=== PATIENT | male | born 1955 | race Caucasian/White ===

== ENCOUNTER → 2022-10-21 | Outpatient (CLI) | payer SELFPAY ==
[2022-10-21 16:11] LABS: Basophils # (A) 0.03 X 10*3/uL (0.00-0.10); Basophils % (A) 0.4 %; Eosinophils # (A) 0.04 X 10*3/uL (0.04-0.35); Eosinophils % (A) 0.5 %; HCT 46.9 % (39.6-50.0); HGB 15.5 g/dL (13.0-17.0); Immature Grans, Automated 0.4 %; Lymphocytes # (A) 1.18 X 10*3/uL (0.90-5.00); Lymphocytes % (A) 15.6 %; MCH 32.4 pg (27.0-32.0); MCV 98.1 fL (80.0-97.0); Mean Platelet Volume 9.6 fL (9.5-12.2); Monocytes # (A) 0.63 X 10*3/uL (0.20-1.00); Monocytes % (A) 8.4 %; NRBC Per 100 WBC 0 /100 WBCS (0.0-0.0); Neutrophils # (A) 5.63 X 10*3/uL (1.80-7.70); Neutrophils % (A) 74.7 %; Platelet Count 281 X 10*3/uL (140-440); RBC 4.78 X 10*6/uL (4.40-5.60); RDW 12.2 % (11.5-14.5); WBC 7.54 X 10*3/uL (4.50-10.00)
== END | disposition home or self-care (01) ==
LOC: LABPAT 11:32
PROVIDERS: ATTEND Surgery
DX: Z01.818 Encounter for other preprocedural examination (principal); K40.20 Bilateral inguinal hernia, without obstruction or gangrene, not specified as recurrent; R00.1 Bradycardia, unspecified
CPT/HCPCS: 85025; 93005

== ENCOUNTER 2022-10-30 06:58 | Day surgery (SDC) | payer MEDICARE ==
[2022-10-26 09:18] VITALS: BMI 24.2
[~2022-10-30 06:58] MED LIST: ACETAMINOPHEN TAB 500 MG TAB PO PRN; HEPARIN SODIUM,PORCINE/PF 5,000 UNIT/0.5 ML SYRINGE SQ PRN
[2022-10-30] MEDS ORDERED: LACTATED RINGERS 1,000 ML IV SCH (07:10)
[2022-10-30] MEDS ORDERED: MIDAZOLAM 2 MG/2 ML VIAL IV PRN (07:10)
[2022-10-30] MEDS ORDERED: HYDROmorphone 0.5 MG/0.5 ML SYRINGE IVP PRN (07:10)
[2022-10-30] MEDS ORDERED: DEXAMETHASONE SOD PHOSPHATE 4 MG/ML 1 ML VIAL IV ONE (07:10)
[2022-10-30] MEDS ORDERED: LIDOCAINE 1% (10MG/ML) FOR IV START INTRADERMA PRN (07:10)
[2022-10-30] MEDS ORDERED: ONDANSETRON 4 MG/2 ML VIAL IVP ONE ×2 (07:10→12:24)
[2022-10-30] MEDS ORDERED: LACTATED RINGERS 1,000 ML IV ONE ×2 (07:18→10:45)
[2022-10-30 07:57] VITALS: RESP 16
[2022-10-30] MEDS ORDERED: TAMSULOSIN 0.4 MG CAP.ER.24H PO ONE (08:18)
[2022-10-30] MEDS ORDERED: MIDAZOLAM 2 MG/2 ML VIAL ONE (08:19)
[2022-10-30] MEDS ORDERED: PROPOFOL 10 MG/ML 20 ML VIAL IV ONE (08:19)
[2022-10-30] MEDS ORDERED: GLYCOPYRROLATE 0.2 MG/ML 2 ML VIAL ONE (08:19)
[2022-10-30] MEDS ORDERED: HYDROmorphone (PF) 1 MG/ML ONE (08:19)
[2022-10-30] MEDS ORDERED: SUCCINYLCHOLINE CHLORIDE 200 MG/10 ML VIAL IV ONE (08:19)
[2022-10-30] MEDS ORDERED: TAMSULOSIN 0.4 MG CAP.ER.24H PO STA (08:19)
[2022-10-30] MEDS ORDERED: PHENYLEPHRINE-0.9% NACL SYG 1,000 MCG/10 ML SYRINGE ONE (08:19)
[2022-10-30] MEDS ORDERED: fentaNYL (PF) 50 MCG/ML 2 ML AMP ONE (08:19)
[2022-10-30] MEDS ORDERED: NEOSTIGMINE 1 MG/ML 10 ML VIAL ONE (08:19)
[2022-10-30] MEDS ORDERED: ePHEDrine 50 MG/ML 1 ML VIAL ONE (08:19)
[2022-10-30] MEDS ORDERED: ROCURONIUM 10 MG/ML (5 ML VIAL) IV ONE (08:19)
[2022-10-30] MEDS ORDERED: KETOROLAC 15 MG/ML 1 ML VIAL ONE ×2 (08:19→12:39)
[2022-10-30] MEDS ORDERED: LIDOCAINE 2% INJ 20 MG/ML (2 ML VIAL) ONE (08:19)
--- NOTE | 2022-10-30 08:21 | P.GSHP ---
History of Present Illness H&P Date: 10/30/22 Chief Complaint: Bilateral inguinal hernia 66-year-old male seen last March in the office. Patient with complaints of bilateral groin bulge. Patient here today for elective repair of bilateral inguinal hernia. Mild pain at times. Hernias have been increasing over the years. Patient with history of chronic tobacco use. Says he has cut back significantly since last year but did not quit. BMI 22. Past Medical History Past Medical History: COPD, Hyperlipidemia, Hypertension History of Any Multi-Drug Resistant Organisms: None Reported Additional Past Surgical History / Comment(s): Fatty tumor removed from neck, wisdom teeth Past Anesthesia/Blood Transfusion Reactions: No Reported Reaction Smoking Status: Current every day smoker - Past Family History Mother Family Medical History: No Reported History Medications and Allergies Home Medications Medication Instructions Recorded Confirmed Type Famotidine [Pepcid] 40 mg PO PC-SUPPER 10/27/22 10/30/22 History Fluticasone/Umeclidin/Vilanter 1 inhalation INHALATION DAILY 10/27/22 10/30/22 History [Trelegy Ellipta 100-62.5-25] Rosuvastatin [Crestor] 20 mg PO DAILY 10/27/22 10/30/22 History Terazosin [Hytrin] 5 mg PO HS 10/27/22 10/30/22 History amLODIPine BESYLATE/BENAZEPRIL 1 cap PO PC-SUPPER 10/27/22 10/30/22 History [amLODIPine BESYLATE/BENAZEPRIL 10-40 mg] Albuterol Inhaler [Ventolin Hfa 1 puff INHALATION QID 10/30/22 10/30/22 History Inhaler] Allergies Allergy/AdvReac Type Severity Reaction Status Date / Time Penicillins Allergy Itching Verified 10/30/22 07:20 Surgical - Exam Vital Signs Temp Pulse Resp BP Pulse Ox 97.4 F L 100 16 147/69 92 L 10/30/22 07:18 10/30/22 07:18 10/30/22 07:18 10/30/22 07:18 10/30/22 07:18 Physical exam: General: Well-developed, well-nourished HEENT: Normocephalic, sclerae nonicteric Abdomen: Nontender, nondistended, reducible bilateral inguinal hernias right greater than left Extremities: No edema Neuro: Alert and oriented Assessment and Plan (1) Bilateral inguinal hernia Narrative/Plan: 66-year-old male with bilateral inguinal hernia. We'll proceed with laparoscopic da Tata assisted repair bilateral inguinal hernia with mesh, possible open. Risks of bleeding, infection, recurrence, bladder and bowel injury, numbness, nerve injury, conversion to an open procedure were discussed with the patient. The patient understands and wishes to proceed. Current Visit: Yes Status: Acute Code(s): K40.20 - BI INGUINAL HERNIA, W/O OBST OR GANGRENE, NOT SPCF RECUR SNOMED Code(s): 82277216
[2022-10-30] MEDS ORDERED: BUPIVACAIN-EPI 0.25%-1:200,000 30 ML VIAL SQ ONE ×2 (08:42→08:55)
[2022-10-30 10:35] VITALS: TEMP 97.2
--- NOTE | 2022-10-30 10:38 | P.OP ---
Date of Procedure: 10/30/22 Implants: PREOPERATIVE DIAGNOSIS: Bilateral inguinal hernia POSTOPERATIVE DIAGNOSIS: Same PROCEDURE: Laparoscopic da Tata assisted repair bilateral inguinal hernia SURGEON: Dr. Haywood ANESTHESIA: General OPERATIVE PROCEDURE DETAILS: Patient was placed in the operating table in the supine position. The patient was placed under general anesthesia. The abdomen was prepped and draped in usual sterile fashion. A small curvilinear supraumbilical incision was made. The fascia was retracted anteriorly with Catalina forceps. The Veress needle was inserted. The saline drop test was normal. Insufflation took place to 15 mmHg. An 8 mm trocar was placed into the peritoneal cavity. 2 additional 8 mm trochars were placed in the right upper quadrant and left upper quadrant under visualization. The robotic arms were then brought in and docked into place. The fenestrated bipolar was used in the left arm and the laparoscopic jose j was utilized in the right arm. A 30 8 mm scope was used in the up position. The peritoneal cavity was inspected. The patient had a moderate sized right direct inguinal hernia and a moderate sized left indirect inguinal hernia. The right-sided hernia containing small bowel and the left-sided hernia containing sigmoid colon. These were able to be reduced without significant difficulty. A incision was created on the peritoneum across the lower abdomen superior to the bladder. The preperitoneal dissection took place bilaterally at that time. The direct hernia on the right- hand side was reduced using blunt dissection. Bro's ligament and the pubic symphysis were well-visualized. Dissection on the left-hand side of the indirect hernia sac then took place without difficulty as well. Once we had full dissection in both sacs fully reduced 2 separate 15 x 10 mm Progrip mesh were placed within the abdomen crossing one another in the midline. These were then sutured to the Bro's ligament across the pubic symphysis to the opposite side using a running 30 absorbable V lock suture. The same stitch was then brought to the midline and the mesh was sutured to the abdominal wall in the midline superiorly. This covered all hernia spaces nicely. The peritoneal defect was then closed bilaterally using a absorbable 2-0 VLok suture. The hernia sacs were incorporated into the peritoneal closure to help prevent future recurrence. The pneumoperitoneum was then evacuated. The skin of all 3 sites was closed using a 4-0 Monocryl stitch. Skin glue was then applied. TYPE OF MESH USED: Progrip 15 x 10 LOCATION OF MESH: Preperitoneal/sub-lay FIXATION: Absorbable 30V lock PREOPERATIVE DISCUSSION ON SMOKING CESSASTION: Yes PREOPERATIVE DISCUSSION ON MORBID OBESITY: Yes PREOPERATIVE DISCUSSION ON APPROPRIATE USE OF NARCOTIC USE: Yes PREOPERATIVE EDUCATION: Multi Modal, Smoking Cessation and Weight Loss with BMI over 35. DISPOSITION: Stable to recovery room
[2022-10-30] MEDS ORDERED: ACETAMINOPHEN TAB 325 MG TAB PO SCH (12:00)
[2022-10-30] MEDS ORDERED: ONDANSETRON 4 MG/2 ML VIAL ONE (12:24)
[2022-10-30] MEDS ORDERED: METOCLOPRAMIDE 5 MG/ML 2 ML VIAL ONE (12:39)
[2022-10-30] MEDS ORDERED: KETOROLAC 15 MG/ML 1 ML VIAL IVP ONE (12:43)
[2022-10-30] MEDS ORDERED: METOCLOPRAMIDE 5 MG/ML 2 ML VIAL IVP ONE (12:43)
[2022-10-30] MEDS ORDERED: IBUPROFEN 600 MG TAB PO SCH (13:30)
[2022-10-30 14:17] VITALS: BP 106/64; PULSE 67
== END 2022-10-30 15:00 ==
LOC: OR 06:58
PROVIDERS: ATTEND Surgery
DX: K40.20 Bilateral inguinal hernia, without obstruction or gangrene, not specified as recurrent (principal); J44.9 Chronic obstructive pulmonary disease, unspecified; I10 Essential (primary) hypertension; E78.5 Hyperlipidemia, unspecified; F17.200 Nicotine dependence, unspecified, uncomplicated; Z79.51 Long term (current) use of inhaled steroids; Z88.0 Allergy status to penicillin; Z79.899 Other long term (current) drug therapy
CPT/HCPCS: 49650; 86900; 86901; 86850; C1781; J1100; J2765; J0690; J2405; J1885; J1170; J1644

== ENCOUNTER → 2024-12-30 | Outpatient (CLI) | payer MEDICARE ==
--- NOTE | 2024-12-31 08:41 | CTL ---
EXAMINATION TYPE: CT Low Dose Lung DATE OF EXAM: 12/30/2024 4:23 PM COMPARISON: None. CLINICAL INDICATION: Male, 69 years old with history of , Current smoker, 2 ppd x 56 years., History of tobacco use. Nicotine dependence TECHNIQUE: Low dose computed tomography scan was performed through the chest at 1 mm thick sections a nd reconstructed images in multiple planes at 1 mm and [address] DLP: 85.6 mGycm, CT CTDI: 2.1 mGy, Automated exposure control for dose reduction was used. CT DIAGNOSTIC QUALITY: Satisfactory FINDINGS: The heart is normal size with a small anterior pericardial effusion. Moderate RCA and mild LAD carballo ry artery calcifications are present. Aorta normal caliber with mild atherosclerotic arch calcifications and conventional arterial vessel b ranching anatomy. No thoracic lymphadenopathy by CT size criteria. Small calcified subcarinal lymph nodes are noted sug gesting prior granulomatous disease. Some strandy scarring or atelectasis at the lung bases and also posterior right upper lobe. Moderate emphysematous change. 7 mm pulmonary nodule posterior right midlung, axial image 186. 6 mm lateral left midlung pulmonary nodule, axial image 186. No consolidation or pleural effusion. There is a tiny hiatal hernia. Low-density nodule right adrenal gland measuring 3.1 cm suggestive of a lipid rich adrenal adenoma. A couple small calcified granulomas in the spleen. Bones: Moderate to severe disc/endplate degenerative change visualized lower cervical spine. IMPRESSION: 1. LungRADS Category 3 (probably benign, 1-2% chance of malignancy). A 7 mm right-sided and 6 mm left -sided pulmonary nodule on baseline screening. 2. COPD with moderate emphysema. Smoking cessation advised. 3. A 3.1 cm nodule of the right adrenal gland with density characteristics suggesting a benign lipid rich adrenal adenoma. CT LUNG RAD AND CT CHEST RECOMMENDATION: Lung-Rad 3 Probably Benign: 6 month follow-up LDCT. S Modifier (other clinically significant findings): None [facility], , 12/31/2024 8:39 AM
--- NOTE | 2024-12-31 10:23 | CA ---
Transthoracic Echo Report Name: Phillip Ribeiro Age: 69 Gender: M : 1955 Exam Date: 12/30/2024 16:01 Exam Location: [facility] Ht (in): 66 Wt (lb): 137 Ordering Physician: Sonny Ruggiero MD Attending/Referring Phys: Adela PadronC Leveler Helper Karyna Dubon RDCS Procedure CPT: Indications: Z12.2 SCRN FOR MALIG FELA F17.210 CRISELDA DEP Cardiac Hx: Technical Quality: Good Contrast 1: Total Dose (mL): Contrast 2: Total Dose (mL): MEASUREMENTS (Male / Female) Normal Values 2D ECHO LV Diastolic Diameter PLAX 4.0 cm 4.2 - 5.9 / 3.9 - 5.3 cm LV Systolic Diameter PLAX 2.4 cm IVS Diastolic Thickness 0.9 cm 0.6 - 1.0 / 0.6 - 0.9 cm LVPW Diastolic Thickness 0.9 cm 0.6 - 1.0 / 0.6 - 0.9 cm LV Relative Wall Thickness 0.4 LVOT Diameter 2.1 cm LV Diastolic Volume MOD BP 99.4 cm??? 67 - 155 / 56 - 104 cm??? LV Systolic Volume MOD BP 35.2 cm??? 22 - 58 / 19 - 49 cm??? LV Ejection Fraction MOD BP 64.6 % >= 55 % LV Cardiac Index MOD BP 3093.5 cm???/min???m??? LV Diastolic Volume MOD 4C 100.8 cm??? LV Systolic Volume MOD 4C 37.2 cm??? LV Ejection Fraction MOD 4C 63.1 % LV Cardiac Index MOD 4C 3065.2 cm???/min???m??? LV Diastolic Length 4C 8.4 cm LV Systolic Length 4C 6.6 cm LV Diastolic Volume MOD 2C 88.2 cm??? LV Systolic Volume MOD 2C 31.0 cm??? LV Ejection Fraction MOD 2C 64.8 % LV Cardiac Index MOD 2C 2751.5 cm???/min???m??? LV Diastolic Length 2C 7.5 cm LV Systolic Length 2C 6.1 cm LA Volume 30.8 cm??? 18 - 58 / 22 - 52 cm??? LA Volume Index 18.1 cm???/m??? 16 - 28 cm???/m??? DOPPLER AV Peak Velocity 119.4 cm/s AV Peak Gradient 5.7 mmHg AV Mean Velocity 82.4 cm/s AV Mean Gradient 3.0 mmHg AV Velocity Time Integral 23.5 cm LVOT Peak Velocity 83.4 cm/s LVOT Peak Gradient 2.8 mmHg LVOT Velocity Time Integral 15.5 cm LVOT Stroke Volume 53.8 cm??? LVOT Stroke Volume Index 31.6 ml/m??? LVOT Cardiac Index 2588.6 cm???/min???m??? AV Area Cont Eq vti 2.3 cm??? AV Area Cont Eq pk 2.4 cm??? MV Area PHT 3.9 cm??? Mitral E Point Velocity 63.8 cm/s Mitral A Point Velocity 59.7 cm/s Mitral E to A Ratio 1.1 MV Deceleration Time 195.7 ms PV Peak Velocity 81.1 cm/s PV Peak Gradient 2.6 mmHg FINDINGS Left Ventricle Left ventricular ejection fraction is estimated at 60-65 %. Left ventricular cavity size normal. Left ventricular wall thickness normal. No obvious regional wall motion abnormalities. Right Ventricle Normal right ventricular size and function. Unable to estimate the right ventricular systolic pressure. Right Atrium Normal right atrial size. Left Atrium Normal left atrial size. Mitral Valve Structurally normal mitral valve. No evidence for mitral valve prolapse. No mitral stenosis. Trace mitral regurgitation. Aortic Valve Trileaflet aortic valve. Aortic valve sclerosis. No aortic valve stenosis or regurgitation. Tricuspid Valve Structurally normal tricuspid valve. No tricuspid stenosis. Trace tricuspid regurgitation. Pulmonic Valve Pulmonic valve not well visualized. No pulmonic stenosis. No pulmonic regurgitation. Pericardium No pericardial effusion. Aorta Normal size aortic root and proximal ascending aorta. CONCLUSIONS Indication: Cardiac malignancy/masses Normal pericardial space no effusion No intracardiac masses Normal LV size and function Previewed by: Dr. Raymond Rueda MD (Electronically Signed) Final Date: 31 December 2024 10:22
== END | disposition home or self-care (01) ==
LOC: RADCTMAIN 15:36
PROVIDERS: ATTEND Family Medicine
DX: Z12.2 Encounter for screening for malignant neoplasm of respiratory organs (principal); F17.210 Nicotine dependence, cigarettes, uncomplicated; J98.4 Other disorders of lung; J44.9 Chronic obstructive pulmonary disease, unspecified; J43.9 Emphysema, unspecified; R06.09 Other forms of dyspnea
CPT/HCPCS: 71271; 93306

== ENCOUNTER 2025-04-15 10:43 | Day surgery (SDC) | payer MEDICARE ==
--- NOTE | 2025-04-15 09:41 | P.GSHP ---
History of Present Illness H&P Date: 04/15/25 CHIEF COMPLAINT: Dysphagia and colon screen HISTORY OF PRESENT ILLNESS: The patient is a 69-year-old male who presents with dysphagia, gastroesophageal reflux disease and need for colon screen. Upper and lower endoscopy were offered for further evaluation and management. PAST MEDICAL HISTORY: Please see list. PAST SURGICAL HISTORY: Please see list. MEDICATIONS: Please see list. ALLERGIES: Please see list. SOCIAL HISTORY: No illicit drug use FAMILY HISTORY: No reports of Crohn disease or ulcerative colitis. REVIEW OF ORGAN SYSTEMS: CONSTITUTIONAL: No reports of fevers or chills. GI: Denies any blood in stools or constipation. PHYSICAL EXAM: VITAL SIGNS: Stable GENERAL: Well-developed pleasant in no acute distress. HEENT: No scleral icterus. Extraocular movements grossly intact. Moist buccal mucosa. NECK: Supple without lymphadenopathy. CHEST: Unlabored respirations. Equal bilateral excursions. CARDIOVASCULAR: Regular rate and rhythm. Distal 2+ pulses. ABDOMEN: Soft, nondistended. MUSCULOSKELETAL: No clubbing, cyanosis, or edema. ASSESSMENT: 1. Dysphagia and gastroesophageal reflux disease 2. Colon screen. PLAN: 1. Recommend proceeding with an upper and lower endoscopy Past Medical History Past Medical History: COPD, Hyperlipidemia, Hypertension Additional Past Medical History / Comment(s): nasal congestion, sinus congestion, has a cough History of Any Multi-Drug Resistant Organisms: None Reported Past Surgical History: Hernia Repair Additional Past Surgical History / Comment(s): fatty tumor removed from neck Past Anesthesia/Blood Transfusion Reactions: Postoperative Nausea & Vomiting (PONV) Additional Past Anesthesia/Blood Transfusion Reaction / Comment(s): sever PONV w/recent hernia surg. Smoking Status: Current every day smoker Medications and Allergies Home Medications Medication Instructions Recorded Confirmed Type Famotidine [Pepcid] 40 mg PO PC-SUPPER 10/27/22 04/14/25 History Fluticasone/Umeclidin/Vilanter 1 inhalation INHALATION DAILY 10/27/22 04/14/25 History [Trelegy Ellipta 100-62.5-25] Rosuvastatin [Crestor] 20 mg PO DAILY 10/27/22 04/14/25 History Terazosin [Hytrin] 5 mg PO HS 10/27/22 04/14/25 History amLODIPine BESYLATE/BENAZEPRIL 1 cap PO PC-SUPPER 10/27/22 04/14/25 History [amLODIPine BESYLATE/BENAZEPRIL 10-40 mg] Albuterol Inhaler [Ventolin Hfa 1 puff INHALATION QID 10/30/22 04/14/25 History Inhaler] Allergies Allergy/AdvReac Type Severity Reaction Status Date / Time Penicillins Allergy Itching Verified 04/14/25 13:08
[2025-04-15] MEDS: IV FLUID CONTINUATION 1,000 ML IV ONE (11:25)
[2025-04-15] MEDS: LACTATED RINGERS 1,000 ML IV SCH (11:47)
[2025-04-15 11:51] VITALS: TEMP 98.5
[2025-04-15] MEDS: ONDANSETRON 4 MG/2 ML VIAL IVP STA (12:08)
[2025-04-15] MEDS ORDERED: PROPOFOL 10 MG/ML 20 ML VIAL IV ONE (12:50)
--- NOTE | 2025-04-15 13:48 | P.PCN ---
Date of Procedure: 04/15/25 Description of Procedure: PREOPERATIVE DIAGNOSIS: Abnormal Cologuard testing Colonoscopy screening POSTOPERATIVE DIAGNOSIS: Tubular adenoma rectum Severe sigmoid diverticulosis OPERATION: Colonoscopy to the ileocecal valve and appendiceal orifice, cecum Colonoscopy with hot snare polypectomy SURGEON: Nannette Marvin MD. ANESTHESIA: MAC. INDICATIONS: The patient is an 69-year-old male who presents with positive Cologuard testing. This is first colonoscopy. Benefits and risks were described and informed consent was obtained. DESCRIPTION OF PROCEDURE: The patient had undergone Suprep. The patient had been brought into the operating room and laid in the left lateral decubitus position. After adequate intravenous sedation, the rectum was examined with 2% lidocaine jelly. The prostate was unremarkable. No external hemorrhoids were encountered. The rectal tone was within normal limits. No lesions were palpated in the rectal vault. An Olympus colonoscope was advanced until the cecum, ileocecal valve and appendiceal orifice were clearly viewed. The prep was good. Severe sigmoid d iverticulosis was encountered. Colonic polyps were found and removed. No evidence of focal colitis was found. Retroflexion of the scope demonstrated grade 1 internal hemorrhoids without active bleeding or inflammation. The colon was desufflated. The patient had tolerated the procedure well. Withdrawal time was over 6 minutes. FINDINGS: Aronchick preparation quality scale 2 (1-5) Internal hemorrhoids, grade 1 No external hemorrhoids No arteriovenous malformations. Severe sigmoid diverticulosis with distortion of the colon requiring abdominal wall pressure Pandiverticulosis Removal of 3 polyps: - Snare polypectomy rectum x 3, 5 - 6 mm tubulovillous adenomas - Cold forceps biopsy at proximal transverse colon, 4 mm polyp. RECOMMENDATIONS: Recommend repeat colonoscopy in 3 years, 2027 Plan - Discharge Summary Discharge Rx Participant: No New Discharge Prescriptions: Continue Terazosin [Hytrin] 5 mg PO HS amLODIPine BESYLATE/BENAZEPRIL [amLODIPine BESYLATE/BENAZEPRIL 10-40 mg] 1 cap PO PC-SUPPER Rosuvastatin [Crestor] 20 mg PO DAILY Fluticasone/Umeclidin/Vilanter [Trelegy Ellipta 100-62.5-25] 1 inhalation INHALATION DAILY Albuterol Inhaler [Ventolin Hfa Inhaler] 1 puff INHALATION QID Discontinued Famotidine [Pepcid] 40 mg PO PC-SUPPER Discharge Medication List Fluticasone/Umeclidin/Vilanter [Trelegy Ellipta 100-62.5-25] 1 inhalation INHALATION DAILY 10/27/22 [History] Rosuvastatin [Crestor] 20 mg PO DAILY 10/27/22 [History] Terazosin [Hytrin] 5 mg PO HS 10/27/22 [History] amLODIPine BESYLATE/BENAZEPRIL [amLODIPine BESYLATE/BENAZEPRIL 10-40 mg] 1 cap PO PC-SUPPER 10/27/22 [History] Albuterol Inhaler [Ventolin Hfa Inhaler] 1 puff INHALATION QID 10/30/22 [History] Follow up Appointment(s)/Referral(s): Nannette Marvin MD [STAFF PHYSICIAN] - 05/05/25 11:30 am Patient Instructions/Handouts: *Surgery [facility] - (Anesthesia) Discharge Instructions Outpatient Surgery, Hiatal Hernia (DC), Gastritis (DC), Diverticulosis (DC), GERD (Gastroesophageal Reflux Disease) (DC), Colorectal Polyps (GEN), Diverticulosis Diet (GEN), Colonoscopy (DC), Upper Endoscopy (DC) Activity/Diet/Wound Care/Special Instructions: Repeat colonoscopy 3 years, 2027 Discharge Disposition: HOME SELF-CARE
--- NOTE | 2025-04-15 14:07 | P.PCN ---
Date of Procedure: 04/15/25 Description of Procedure: PREOPERATIVE DIAGNOSIS: Dysphagia POSTOPERATIVE DIAGNOSIS: Gastroesophageal reflux disease. Candidiasis esophagitis Gastritis with bleeding Diaphragmatic hiatal hernia OPERATION: Esophagogastroduodenoscopy with cold forceps biopsies along esophagus, antrum and duodenum SURGEON: Nannette Marvin MD ANESTHESIA: MAC. INDICATIONS: The patient is a 69-year-old male who presents with dysphagia and reflux disease. Benefits and risks of the procedure were described. Informed consent was obtained. DESCRIPTION: The patient was brought into the endoscopy suite and laid in the left lateral decubitus position. An Olympus gastroscope was passed along the posterior oropharynx down to the distal esophagus where the squamocolumnar junction was encountered at 40 cm from the incisors. The stomach was entered and no bile reflux was found. Additional findings are listed below. Biopsies with cold forceps were obtained of the antrum. The first through third portion of the duodenum was examined. Retroflexion of the scope confirmed Hill grade 2 lower esophageal valve. The squamocolumnar junction demonstrated LA grade C erosive esophagitis. The stomach was desufflated. The patient tolerated the procedure well. FINDINGS: Squamocolumnar junction 37 cm from the incisors. Diaphragmatic hiatus at 40 cm. Hill grade 3 lower esophageal valve. LA grade C erosive esophagitis. Biopsies obtained of the duodenum. Acute on chronic gastritis with bleeding with biopsies obtained. Multiple white exudate suspicious for candidiasis within the esophagus, biopsies obtained RECOMMENDATIONS: Additional treatment for candidiasis pending pathology
[2025-04-15 14:16] VITALS: RESP 16
[2025-04-15 14:23] VITALS: BP 121/80; PULSE 63
== END 2025-04-15 14:32 | disposition home or self-care (01) ==
LOC: ORWHC2ENDO 10:43
PROVIDERS: ATTEND Surgery Plastic and Reconstructive Surgery
DX: K21.00 Gastro-esophageal reflux disease with esophagitis, without bleeding (principal); B37.81 Candidal esophagitis; K44.9 Diaphragmatic hernia without obstruction or gangrene; K29.51 Unspecified chronic gastritis with bleeding; D12.8 Benign neoplasm of rectum; K57.30 Diverticulosis of large intestine without perforation or abscess without bleeding; K64.8 Other hemorrhoids; J44.9 Chronic obstructive pulmonary disease, unspecified; E78.5 Hyperlipidemia, unspecified; I10 Essential (primary) hypertension; F17.200 Nicotine dependence, unspecified, uncomplicated; Z88.0 Allergy status to penicillin; Z79.51 Long term (current) use of inhaled steroids
CPT/HCPCS: 88305; 45385; 43239; 45380; J2405; J2704